=== PATIENT | female | born 1960 | race Caucasian/White ===

== ENCOUNTER 2017-04-17 13:53 | Emergency (ER) | payer BC, OTHER ==
[2017-04-17 13:55] VITALS: BP 133/94; PULSE 94; RESP 26; TEMP 97.8; O2SAT 98
[2017-04-17] MEDS ORDERED: ONDANSETRON ODT 4 MG TAB PO ONE (14:30)
[2017-04-17] MEDS ORDERED: MORPHINE SULFATE 4 MG/ML INJ IM ONE (14:30)
--- NOTE | 2017-04-17 14:32 | PD ---
HPI Chief Complaint: Pain: Acute or Chronic Time Seen by Provider: 14:28 Travel History International Travel<30 days: No Contact w/Intl Traveler<30days: No Traveled to known affect area: No History of Present Illness HPI 56-year-old female presents to the emergency department for evaluation of exacerbation of her chronic sciatica pain. Patient reports history of left- sided sciatica pain. However, her mother recently . Before mother passed way, she is doing a lot of heavy lifting as well as been under a lot of stress. She states that this caused her sciatica pain to increase. She states she saw her primary care physician who prescribed ketorolac. However, it is not helping. Patient states she took an oxycodone that she had at home which also did not help with the pain. Patient is ambulatory when I see her. She states the pain is worse with lying down. No fevers or chills. No loss of bowel or bladder control. No saddle anesthesias. No chest pressure distress. No abdominal pain. Nausea, vomiting, diarrhea. PFSH Past Medical History Diabetes: Yes Patient Takes Glucophage: Yes ?: Not Past Surgical History Hysterectomy: Yes Social History Alcohol Use: No Tobacco Use: Yes Substance Use: No Allergies-Medications (Allergen,Severity, Reaction): Coded Allergies: penicillin G (Verified Allergy, Severe, 04/17/17) Reported Meds & Prescriptions Reported Meds & Active Scripts Active Lortab (Hydrocodone-Acetaminophen) 5-325 Mg Tab 1 Tab PO Q6H PRN Flexeril (Cyclobenzaprine HCl) 10 Mg Tab 10 Mg PO TID PRN Medrol Dosepak (Methylprednisolone) 4 Mg Dspk 4 Mg PO DIRECTED Per Pharmacist direction Review of Systems Except as stated in HPI: all other systems reviewed are Neg Physical Exam Narrative GENERAL: Well-nourished, well-developed female patient, ambulatory. Afebrile. SKIN: Focused skin assessment warm/dry. HEAD: Normocephalic. Atraumatic. EYES: No scleral icterus. No injection or drainage. NECK: Supple, trachea midline. No JVD or lymphadenopathy. CARDIOVASCULAR: Regular rate and rhythm without murmurs, gallops, or rubs. Bilateral radial and pedal pulses are 2+. RESPIRATORY: Breath sounds equal bilaterally. No accessory muscle use. Lungs sounds are clear to auscultation. GASTROINTESTINAL: Abdomen soft, non-tender, nondistended. MUSCULOSKELETAL: No cyanosis, or edema. Bilateral upper and lower extremity strength 5/5. All extremities are neurovascularly intact. BACK: No obvious deformity. No CVA tenderness. Patient has tenderness to palpation of lower midline lumbar spine and left lumbar paraspinal musculature. Data Data Last Documented VS Vital Signs Date Time Temp Pulse Resp B/P (MAP) Pulse Ox O2 Delivery O2 Flow Rate FiO2 04/17/17 16:02 04/17/17 13:55 97.8 94 26 98 Orders Orders Morphine Inj (Morphine Inj) (04/17/17 14:30) Ondansetron Odt (Zofran Odt) (04/17/17 14:30) Orphenadrine Inj (Norflex Inj) (04/17/17 15:15) Dexamethasone Inj (Decadron Inj) (04/17/17 15:15) [facility] Medical Decision Making Medical Screen Exam Complete: Yes Emergency Medical Condition: Yes Medical Record Reviewed: Yes Differential Diagnosis Sciatica versus muscle strain versus muscle spasm versus herniated disc Narrative Course 56-year-old female presents to the emergency department for evaluation of low back pain that radiates down the left leg. Patient seen her primary care physician for this and was prescribed ketorolac which is not working. Patient is ambulatory when I see her. However, she is moaning in pain. No red flag symptoms. No traumatic injury. Patient is given morphine 4 mg IM, Zofran 4 mg ODT. Upon reassessment, patient states morphine slightly helped her pain, but still reports severe low back pain. I discussed performing MRI with her. She states she had one done recently at [facility]. I was able to pull prescribed report. Patient MRI of the lumbar spine without contrast on March 23, 2017. Reports shows new small left paracentral disc protrusion L3 to L4 with your migration of disc material into the left lateral recess at L3, stable small left paracentral disc protrusion at L4 to 5 with foraminal effacement possible left L5 nerve root impingement, stable mild disc bulge at L5 to S1, no acute bony abnormality. I discussed these findings with attending physician, Dr. Hair. He recommends pain control and discharged to follow-up with her primary care physician. Patient is given Decadron 8 mg IM, Norflex 60 mg IM. Upon reassessment, patient is found to 4/10. Patient agrees with discharge home. Patient will be discharged with a short-term prescription for Flexeril, Medrol Dosepak, Lortab. Patient is instructed follow primary care physician the next 1-2 days. She verbalizes agreement and understanding. Diagnosis Primary Impression: Sciatica Qualified Codes: M54.32 - Sciatica, left side Referrals: Primary Care Physician 1 day Patient Instructions: General Instructions, Sciatica (ED) Additional Instructions: Take Lortab as directed as needed for moderate to severe pain. Caution this can make you drowsy so do not drive after taking. Continue anti-inflammatories , ketorolac, as directed as needed for [id number] pain. Take Flexeril as directed as needed. Take Medrol Dosepak as directed. Start this tomorrow. Follow-up with your primary care physician. Return to the emergency department for any acute worsening of symptoms. Med/Other Pt SpecificInfo: Prescription(s) given Scripts Hydrocodone-Acetaminophen (Lortab) 5-325 Mg Tab 1 TAB PO Q6H Y for PAIN, #12 TAB 0 Refills Prov: Allen Hair MD 04/17/17 Cyclobenzaprine (Flexeril) 10 Mg Tab 10 MG PO TID Y for MUSCLE SPASM, #21 TAB 0 Refills Prov: Jeana Whiteside 04/17/17 Methylprednisolone Dosepak (Medrol Dosepak) 4 Mg Dspk 4 MG PO DIRECTED, #1 DSPK 0 Refills Per Pharmacist direction Prov: Jeana Whiteside 04/17/17 Disposition: 01 DISCHARGE HOME Condition: Stable Jeana Whiteside Apr 17, 2017 14:32
[2017-04-17] MEDS ORDERED: ORPHENADRINE INJ 60 MG/2 ML AMP IM ONE (15:15)
[2017-04-17] MEDS ORDERED: DEXAMETHASONE SOD PHOS 4 MG/ML VIAL IM ONE (15:15)
[2017-04-17] MEDS ORDERED: CYCL1TAB29 PO (15:59)
[2017-04-17] MEDS ORDERED: MEDR4PAK PO (15:59)
[2017-04-17] MEDS ORDERED: HYDR-3533 PO (16:00)
== END 2017-04-17 16:16 | disposition home or self-care (01) ==
LOC: NEPK 13:53
DX: M54.32 Sciatica, left side (principal); E11.9 Type 2 diabetes mellitus without complications; Z72.0 Tobacco use
CPT/HCPCS: 96372; 99284; J1100; J2270; J2360